=== PATIENT | female | born 1975 | race Caucasian/White ===

== ENCOUNTER 2018-03-14 09:03 | Day surgery (SDC) | payer OTHER ==
[~2018-03-14] VITALS: Ht 182.9 cm; Wt 138.9 kg
[~2018-03-14 09:03] MED LIST: ALBU90OI INH; ALBU90OI61 INH; ALBUTEROL; AMOX500 PO; AZIT250 PO; BCP PO; BIRTH CONTROL; BIRTH CONTROL PILLS; BIRTH CONTROL PO; Benadryl 50 mg50 MG PO; CHOL10002 PO; CITA20 PO; CRUTCH4 USE; CYCL10 PO; DIPH50 PO; ERYT.5TO OD; HYDACE5325 PO; HYDCHL25 PO; HYDCHL50 PO; HYDCHLSU PO; HYDGUAL120 PO; HYDPAM50 PO; Hydromet Syrup473 ML PO; IBUP200 PO; IBUP800 PO; KETO75 PO; LEVOTHYROXIN; LEVSOD100 PO; LEVSOD150 PO; LISI20 PO; LOSA50 PO; Micro-K10 MEQ; Motrin600 MG PO; NAPR500 PO; NAPR550 PO; Norco 5-325 Ta1 EACH PO; OXYACE5T PO; POTCIT5 PO; PRODEXEL PO; Pepcid20 MG PO; Percocet 5-3251 EACH PO; Prednisone20 MG PO; QVAR7.3 GM IH; RXHYD5325 PO; RXTRAM50 PO; TRAM50 PO; Ultram50 MG PO; VITAMIN D5000 UNIT PO; VITS; Zithromax250 MG PO; Zofran4 MG PO
== END 2018-03-14 11:05 | disposition home or self-care (01) ==
LOC: ORSCSDS 09:03
PROVIDERS: Internal Medicine Gastroenterology
PROC: 0DB68ZX Excision of Stomach, Via Natural or Artificial Opening Endoscopic, Diagnostic (ICD-10-PCS; principal; 2018-03-14 10:30)
PROC: 0DB88ZX Excision of Small Intestine, Via Natural or Artificial Opening Endoscopic, Diagnostic (ICD-10-PCS; principal; 2018-03-14 10:30)
PROC: 0DB58ZX Excision of Esophagus, Via Natural or Artificial Opening Endoscopic, Diagnostic (ICD-10-PCS; principal; 2018-03-14 10:30)
DX: R10.9 Unspecified abdominal pain (principal); K22.2 Esophageal obstruction; K29.80 Duodenitis without bleeding; K44.9 Diaphragmatic hernia without obstruction or gangrene; K20.9 Esophagitis, unspecified; K21.9 Gastro-esophageal reflux disease without esophagitis; J45.909 Unspecified asthma, uncomplicated; K29.70 Gastritis, unspecified, without bleeding; K30 Functional dyspepsia; E03.9 Hypothyroidism, unspecified; E66.01 Morbid (severe) obesity due to excess calories; Z68.41 Body mass index [BMI] 40.0-44.9, adult; Z79.899 Other long term (current) drug therapy
CPT/HCPCS: 88305; 88312; 88342; J7120

== ENCOUNTER → 2018-06-08 | Outpatient (CLI) | payer OTHER ==
[~2018-06-08] MED LIST changes: +Citalopram HBr40 MG PO; +LIOT5 PO
[2018-06-10 15:07] LABS: HPV 16 Negative (Negative); HPV 18 Negative (Negative); HPV OTHER HR TYPES Positive (Negative)
== END | disposition home or self-care (01) ==
LOC: LAB SHORT 09:08 → LAB 09:08
PROVIDERS: Obstetrics & Gynecology
DX: Z01.419 Encounter for gynecological examination (general) (routine) without abnormal findings (principal)
CPT/HCPCS: 87624; 87625; G0123

== ENCOUNTER 2019-03-31 02:12 | Emergency (ER) | payer OTHER ==
[~2019-03-31] VITALS: Ht 182.9 cm; Wt 145.2 kg
[~2019-03-31 02:12] MED LIST changes: +IRON236 MG PO; +Vitamin D400 UNI2 PO
[2019-03-31] MEDS ORDERED: LIOT25 PO (02:50)
[2019-03-31] MEDS ORDERED: Norco 5-325 Ta1 EACH PO (07:10)
[2019-03-31] MEDS ORDERED: IBUP800 PO (07:10)
== END 2019-03-31 07:40 | disposition home or self-care (01) ==
LOC: ER 02:12
DX: S80.01XA Contusion of right knee, initial encounter (principal); W18.39XA Other fall on same level, initial encounter; Z88.8 Allergy status to other drugs, medicaments and biological substances; Z88.5 Allergy status to narcotic agent; Z79.899 Other long term (current) drug therapy; G43.909 Migraine, unspecified, not intractable, without status migrainosus; E03.9 Hypothyroidism, unspecified; I10 Essential (primary) hypertension
CPT/HCPCS: 73564; 99283-25

== ENCOUNTER → 2019-07-14 | Outpatient (CLI) | payer OTHER ==
[~2019-07-14] MED LIST changes: +LIOT25 PO
[2019-07-18 15:07] LABS: HPV 16 Negative (Negative); HPV 18 Negative (Negative); HPV OTHER HR TYPES Positive (Negative)
== END | disposition home or self-care (01) ==
LOC: LAB SHORT 12:00 → LAB 12:00
PROVIDERS: Obstetrics & Gynecology
DX: Z01.419 Encounter for gynecological examination (general) (routine) without abnormal findings (principal)
CPT/HCPCS: 87624; 87625; G0123

== ENCOUNTER → 2019-12-26 | Outpatient (CLI) | payer OTHER | END | disposition home or self-care (01) | LOC: PLD 08:23 → LAB SHORT 08:23 | DX: R87.810 Cervical high risk human papillomavirus (HPV) DNA test positive (principal) | CPT/HCPCS: 88305 ==

== ENCOUNTER 2020-01-21 00:52 | Emergency (ER) | payer OTHER ==
[~2020-01-21] VITALS: Ht 182.9 cm; Wt 147.9 kg
[2020-01-21 01:22] LABS: Source, Urine Clean Catch
[2020-01-21 01:24] LABS: Appearance, Urine Turbid (Clear); Bilirubin, Urine Neg (Neg); Blood, Urine 5+ (Neg); Color, Urine Yellow (P-Yellow); Glucose Qualitative, Urine Neg (Neg); Ketones, Urine 1+ (Neg); Leukocyte Esterase, Urine 3+ (Neg); Nitrite, Urine Pos (Neg); Protein, Urine 3+ (Neg); Urobilinogen, Urine NORM (Normal)
[2020-01-21 01:39] LABS: Bacteria Many /hpf; Squamous Epithelial Cells Mod /hpf (Few); White Blood Cells, Urine TNTC /hpf (0-5)
[2020-01-21 01:40] LABS: BASOPHILS ABSOLUTE AUTO 0.02 K/mm3 (0.00-0.23); BASOPHILS PERCENT AUTO 0 % (0-2); EOSINOPHILS ABSOLUTE AUTO 0.03 K/mm3 (0.00-0.68); EOSINOPHILS PERCENT AUTO 0 % (0-6); Hematocrit 40.1 % (33.0-51.0); Hemoglobin 13.2 g/dL (11.5-16.0); IMMATURE GRAN ABSOLUTE AUTO 0.04 K/mm3 (0.00-0.10); IMMATURE GRAN PERCENT AUTO 1 % (0-1); LYMPHOCYTES ABSOLUTE AUTO 0.97 K/mm3 (0.84-5.20); LYMPHOCYTES PERCENT AUTO 12 % (21-46); MONOCYTES ABSOLUTE AUTO 0.17 K/mm3 (0.16-1.47); MONOCYTES PERCENT AUTO 2 % (4-13); Mean Corpuscular HGB 31.5 pg (26.0-34.0); Mean Corpuscular HGB Conc 32.9 g/dL (31.5-36.5); Mean Corpuscular Volume 96 fL (80-100); Mean Platelet Volume 9.4 fL (9.1-12.4); NEUTROPHILS ABSOLUTE AUTO 7.23 K/mm3 (1.96-9.15); NEUTROPHILS PERCENT AUTO 85 % (41-73); Platelet Count 235 K/mm3 (150-400); RDW Coefficient Variation 12.5 % (11.7-14.2); RDW Standard Deviation 43.8 fL (35.1-46.3); Red Blood Cell Count 4.19 M/mm3 (3.80-5.20); White Blood Cell Count 8.46 K/mm3 (4.00-11.30)
[2020-01-21] MEDS ORDERED: LIOT5 PO (01:49)
[2020-01-21] MEDS ORDERED: VENL75ER PO (01:50)
[2020-01-21] MEDS ORDERED: SYNTHROID0.2 MG PO (01:50)
[2020-01-21] MEDS ORDERED: VITAMIN D3125 MC1 PO (01:51)
[2020-01-21] MEDS ORDERED: ZINC15 PO (01:52)
[2020-01-21] MEDS ORDERED: Vitamin B-1250 MCG PO (01:52)
[2020-01-21 01:59] LABS: Alanine Aminotransfer (ALT/SGP 27 U/L (12-78); Albumin, Blood 3.1 g/dL (3.4-5.0); Albumin/Globulin Ratio 0.7 (0.8-1.8); Alk Phos 158 U/L (50-136); Anion Gap 6 mmol/L (6-16); Aspartate Aminotrans (AST/SGOT 19 U/L (12-37); Bilirubin, Total 0.5 mg/dL (0.1-1.0); Blood Urea Nitrogen 13 mg/dL (8-24); Bun/Creatinine Ratio 17.4 (12.0-20.0); CO2, Blood 26 mmol/L (21-32); Calcium, Blood 8.3 mg/dL (8.5-10.1); Chloride, Blood 109 mmol/L (98-108); Creatinine, Blood 0.75 mg/dL (0.40-1.00); Globulin, Blood 4.2 g/dL (2.2-4.0); Glomerular Filtration Rate >60 (60-); Glucose, Blood 134 mg/dL (70-99); Potassium, Blood 3.7 mmol/L (3.5-5.5); Sodium, Blood 141 mmol/L (136-145); Total Protein, Blood 7.3 g/dL (6.4-8.2)
[2020-01-21] MEDS ORDERED: ONDA4ODT MM (02:44)
[2020-01-21] MEDS ORDERED: CEFD300 PO (02:44)
== END 2020-01-21 03:09 | disposition home or self-care (01) ==
LOC: ER 00:52
PROVIDERS: Emergency Medicine
DX: N12 Tubulo-interstitial nephritis, not specified as acute or chronic (principal); I10 Essential (primary) hypertension; G43.909 Migraine, unspecified, not intractable, without status migrainosus; E03.9 Hypothyroidism, unspecified; F41.9 Anxiety disorder, unspecified; Z88.8 Allergy status to other drugs, medicaments and biological substances; Z88.5 Allergy status to narcotic agent; Z79.899 Other long term (current) drug therapy
CPT/HCPCS: 36415; 80053; 81001; 83605; 85025; 87077; 87086; 87186; 96361; 96365; 96375; 99283-25; A9270-GY; J0696; J1885; J7030; J7120

== ENCOUNTER 2020-12-01 08:09 | Emergency (ER) | payer OTHER ==
[~2020-12-01] VITALS: Ht 182.9 cm; Wt 145.2 kg
[~2020-12-01 08:09] MED LIST changes: +CEFD300 PO; +IRON18 MG PO; -IRON236 MG PO; +ONDA4ODT MM; +SYNTHROID0.2 MG PO; +VENL75ER PO; +VITAMIN D325 MC3 PO; +Vitamin B-1250 MCG PO; +ZINC15 PO
[2020-12-01 08:47] LABS: Source, Urine Clean Catch
[2020-12-01 08:56] LABS: BASOPHILS ABSOLUTE AUTO 0.03 K/mm3 (0.00-0.23); BASOPHILS PERCENT AUTO 1 % (0-2); EOSINOPHILS ABSOLUTE AUTO 0.13 K/mm3 (0.00-0.68); EOSINOPHILS PERCENT AUTO 3 % (0-6); Hematocrit 42.2 % (33.0-51.0); Hemoglobin 13.8 g/dL (11.5-16.0); IMMATURE GRAN ABSOLUTE AUTO 0.01 K/mm3 (0.00-0.10); IMMATURE GRAN PERCENT AUTO 0 % (0-1); LYMPHOCYTES PERCENT AUTO 32 % (21-46); MONOCYTES ABSOLUTE AUTO 0.41 K/mm3 (0.16-1.47); MONOCYTES PERCENT AUTO 8 % (4-13); Mean Corpuscular HGB 31.5 pg (26.0-34.0); Mean Corpuscular HGB Conc 32.7 g/dL (31.5-36.5); Mean Corpuscular Volume 96 fL (80-100); Mean Platelet Volume 9.5 fL (9.1-12.4); NEUTROPHILS ABSOLUTE AUTO 3.01 K/mm3 (1.96-9.15); NEUTROPHILS PERCENT AUTO 57 % (41-73); Platelet Count 320 K/mm3 (150-400); RDW Coefficient Variation 13.1 % (11.7-14.2); RDW Standard Deviation 46.8 fL (35.1-46.3); Red Blood Cell Count 4.38 M/mm3 (3.80-5.20); White Blood Cell Count 5.29 K/mm3 (4.00-11.30)
[2020-12-01 09:08] LABS: Bilirubin, Urine Neg (Neg); Glucose Qualitative, Urine Neg (Neg); Protein, Urine 2+ (Neg); Urobilinogen, Urine NORM (Normal)
[2020-12-01 09:10] LABS: Blood, Urine 1+ (Neg); Ketones, Urine 1+ (Neg); Leukocyte Esterase, Urine 1+ (Neg); Nitrite, Urine Pos (Neg); Specific Gravity, Urine 1.025 (1.003-1.022)
[2020-12-01 09:11] LABS: Appearance, Urine Hazy (Clear); Color, Urine Yellow (P-Yellow)
[2020-12-01 09:13] LABS: Bacteria Many /hpf; Mucus Light (0-Heavy); Red Blood Cells, Urine 0-2 /hpf (0-2); Squamous Epithelial Cells Mod /hpf (Few)
[2020-12-01 09:38] LABS: Albumin, Blood 3.7 g/dL (3.4-5.0); Albumin/Globulin Ratio 0.9 (0.8-1.8); Bilirubin, Total 0.2 mg/dL (0.1-1.0); Bun/Creatinine Ratio 22.1 (12.0-20.0); Creatinine, Blood 1.31 mg/dL (0.40-1.00); Globulin, Blood 3.9 g/dL (2.2-4.0); Potassium, Blood 3.9 mmol/L (3.5-5.5); Total Protein, Blood 7.6 g/dL (6.4-8.2)
[2020-12-01] MEDS ORDERED: OXYC5 PO (10:50)
[2020-12-01] MEDS ORDERED: PROM25 PO (10:50)
[2020-12-24] MEDS ORDERED: THYR60 PO (15:09)
[2020-12-24] MEDS ORDERED: MAGNESIUM PO (15:10)
[2020-12-24] MEDS ORDERED: Selenomax200 MCG PO (15:11)
== END 2020-12-01 11:05 | disposition home or self-care (01) ==
LOC: ER 08:09
PROVIDERS: Emergency Medicine
DX: K80.70 Calculus of gallbladder and bile duct without cholecystitis without obstruction (principal); I10 Essential (primary) hypertension; Z79.899 Other long term (current) drug therapy
CPT/HCPCS: 36415; 76705; 80053; 81001; 83690; 85025; 87086; 96374; 99284-25; J2405; J7030

== ENCOUNTER 2020-12-30 12:08 | Day surgery (SDC) | payer OTHER ==
[~2020-12-30] VITALS: Ht 182.9 cm; Wt 153.3 kg
[~2020-12-30 12:08] MED LIST changes: +MAGNESIUM PO; +OXYC5 PO; +PROM25 PO; +Selenomax200 MCG PO; +THYR60 PO
[2020-12-30] MEDS ORDERED: POTCHL20ER PO (12:52)
--- NOTE | 2020-12-30 12:55 | NUR ---
Ambulatory in Day Surgery Patient confirms NPO status and agrees with scheduled surgery. History, Chart, Medications and Allergies reviewed before start of procedure. Lungs clear T/O to AuscultatioN. IV ATTEMPT FROM [employer] STUDENT, UNSUCCESSFUL. URINE NEGATIVE.
--- NOTE | 2020-12-30 15:27 | NUR ---
Dressing to procedure site clean, dry, intact with no visible drainage, swelling, erythema or bruising noted.
--- NOTE | 2020-12-30 16:15 | NUR ---
PT BEING INSTRUCTED ON PAIN MEDICATIION RX PT STATES [place] MAKES HER NOT SLEEP. DR HDZ NOTIFIED WILL BE OVER TO WRIT NEW RX FOR PT.OLD SCRIPS PLACED IN SHREDDER
--- NOTE | 2020-12-30 16:35 | NUR ---
Patient up to Ambulate independently. Gait steady. Discharge instructions reviewed with patient. Patient verbalizes understanding. Copy given to patient to take home. Dressing to procedure site clean, dry, intact with no visible drainage, swelling, erythema or bruising noted. Patient States Post-Procedure ride home has been arranged. Discharged via wheelchair to private car for ride home.
== END 2020-12-30 22:52 | disposition home or self-care (01) ==
LOC: ORSCMMR 12:08 → ORD 13:30 → ORSCMMR 22:52
PROVIDERS: Surgery
PROC: 0FT44ZZ Resection of Gallbladder, Percutaneous Endoscopic Approach (ICD-10-PCS; principal; 2020-12-30 13:30)
DX: K80.20 Calculus of gallbladder without cholecystitis without obstruction (principal); I10 Essential (primary) hypertension; E06.3 Autoimmune thyroiditis; E66.01 Morbid (severe) obesity due to excess calories; Z68.42 Body mass index [BMI] 45.0-49.9, adult; J45.909 Unspecified asthma, uncomplicated; Z79.899 Other long term (current) drug therapy; F17.210 Nicotine dependence, cigarettes, uncomplicated
CPT/HCPCS: 88304; A9270; J0694; J1100; J1885; J2250; J2405; J2704; J3010; J7120

== ENCOUNTER 2021-03-21 00:43 | Emergency (ER) | payer OTHER ==
[~2021-03-21] VITALS: Ht 182.9 cm; Wt 149.7 kg
[~2021-03-21 00:43] MED LIST changes: +POTCHL20ER PO
== END 2021-03-21 01:33 | disposition left against medical advice (07) ==
LOC: ER 00:43
DX: Z53.21 Procedure and treatment not carried out due to patient leaving prior to being seen by health care provider (principal)